=== PATIENT | female | born 1985 | race Caucasian/White ===

== ENCOUNTER → 2017-09-25 | Outpatient (CLI) | payer OTHER ==
--- NOTE | 2017-09-25 16:57 | RAD ---
EXAM: Obstetrics sonogram. HISTORY: Supervision of normal . TECHNIQUE: Sonographic imaging of a gravid uterus was performed. COMPARISON: None. FINDINGS: The uterus measures 15.3 x 10.7 x 6.4 cm. There is an intrauterine gestational sac with pole. The gestational sac is normal in configuration and the amniotic fluid volume is grossly normal. The crown-rump length is 5.8 cm, corresponding with a gestational age of 12 weeks and 2 days. The heartbeat is a heart rate of 147 bpm. The yolk sac is not seen. The ovaries are normal in size and demonstrate normal blood flow. The cervix is long and closed, measuring 6.8 cm. IMPRESSION: Single intrauterine fetus with an estimated gestational age of 12 weeks and 2 days and heart rate of 147 bpm. Electronically signed by: Federica Womack MD (09/25/2017 4:53 PM) [id number]
== END | disposition home or self-care (01) ==
LOC: US 15:44
PROVIDERS: ATTEND Specialist
DX: Z34.91 Encounter for supervision of normal pregnancy, unspecified, first trimester (principal); Z3A.12 12 weeks gestation of pregnancy
CPT/HCPCS: 76801

== ENCOUNTER → 2017-11-13 | Outpatient (CLI) | payer OTHER ==
--- NOTE | 2017-11-13 16:03 | RAD ---
Obstetrical ultrasound, 11/13/2017: HISTORY: Supervision of normal There is a single intrauterine fetus in a cephalic orientation. The biparietal diameter measures 4.3 cm compatible with a gestational age of 19 weeks and 1 day. This corresponds well to the other measurements and yields an average gestational age of 19 weeks and 2 days and a sonographic EDC of 04/07/2018. This correlates well with the EDC of 04/03/2018 established on the previous ultrasound exam of 09/25/2017. Normal activity and heart motion are seen. A four-chamber heart is evident with a heart rate of 135 bpm. A three-vessel umbilical cord is identified with a normal cord insertion site. Fluid is evident in the stomach and bladder. The visualized portions of the spine and kidneys are unremarkable. A normal amount of amniotic fluid is present. The placenta lies posteriorly extending into the fundal region. The cervical length was estimated at 5 cm. The maternal ovaries were not visualized. IMPRESSION: Single viable intrauterine fetus of 19-20 weeks gestational age which has demonstrated normal interval growth since 09/25/2017. Electronically signed by: Alex Suazo MD (11/13/2017 3:59 PM) [facility]
== END | disposition home or self-care (01) ==
LOC: US 09:19
PROVIDERS: ATTEND Specialist
DX: Z34.82 Encounter for supervision of other normal pregnancy, second trimester (principal); Z3A.20 20 weeks gestation of pregnancy
CPT/HCPCS: 76805